=== PATIENT | female | born 1970 | race Asian ===

== ENCOUNTER 2017-08-21 13:21 | Emergency (ER) | payer MEDICAID ==
[~2017-08-21] VITALS: Ht 167.6 cm; Wt 66.7 kg
[2017-08-21 14:00] VITALS: BP 123/78
--- NOTE | 2017-08-21 14:50 | Emergency Room Report ---
History of Present Illness General Chief Complaint: Skin Rash/Abscess Source: Patient Present Illness HPI 47-year-old female presents to the emergency department complaining of pain, swelling and erythema to the area under her chin. Patient states that she has always had a palpable bump there that was very hard however while the last 4 days it has become very red and more tender than normal. Patient denies fevers or chills she denies lesions elsewhere on the body. Patient states that her pain is about approximately 2 out of 10 in severity. And she also states that she has a mild itching sensation in the area as well.Denies pain or difficulty with swallowing. She denies sore throat. Allergies: Coded Allergies: No Known Allergies (Unverified , 08/21/17) Patient History Past Medical History: see triage record Past Surgical History: none Last Menstrual Period: over 1 yr ago Reviewed Nursing Documentation: PMH: Agreed; PSxH: Agreed Nursing Documentation-PMH Past Medical History: No Stated History Review of Systems All Other Systems: negative except mentioned in HPI Physical Exam Vital Signs Date Time Temp Pulse Resp B/P (MAP) Pulse Ox O2 Delivery O2 Flow Rate FiO2 08/21/17 13:37 98.2 68 18 123/78 97 Room Air 98.2 Sp02 EP Interpretation: reviewed, normal General Appearance: no apparent distress, alert, GCS 15, non-toxic Head: normocephalic, atraumatic Eyes: bilateral eye normal inspection, bilateral eye PERRL ENT: hearing grossly normal, no angioedema, normal voice Neck: full range of motion, other - palpable area of fluctuance with some erythema 2 cm in diameter- well circumscribed. - Left anterior neck just below the chin. Respiratory: lungs clear, normal breath sounds, speaking full sentences Cardiovascular #1: regular rate, rhythm Musculoskeletal: back normal, gait/station normal, normal range of motion, non- tender Neurologic: alert, oriented x3, responsive, motor strength/tone normal, sensory intact, speech normal, grossly normal Psychiatric: judgement/insight normal Skin: normal color, no rash, warm/dry, well hydrated, other - Infected cyst- Left anterior neck just under the chin. palpable area of fluctuance with some erythema 2 cm in diameter- well circumscribed. Lymphatic: no adenopathy Procedures Incision and Drainage Incision and Drainage : Consent: Verbal Site: Left anterior neck/chin Blade Size: 11 I & D Procedure: betadine prep, sterile drapes applied, sterile dressing applied Wound Location: head Wound's Depth, Shape: superficial Wound Length (cm): 1 Wound Explored: contaminated - thick purulent material was expressed from the incision Anesthesia: 1% Lidocaine Volume Anesthetic (ccs): 1 Splint Applied?: No Sling Applied?: No Patient Tolerated: Well Complications: None Medical Decision Making PA Attestation Dr. soriano is my supervising Physician whom patient management has been discussed with. Diagnostic Impression: Primary Impression: Infected sebaceous cyst of skin ER Course 47-year-old female presents to the emergency department complaining of pain, swelling and erythema to the area under her chin. Patient states that she has always had a palpable bump there that was very hard however while the last 4 days it has become very red and more tender than normal. Patient denies fevers or chills she denies lesions elsewhere on the body. Patient states that her pain is about approximately 2 out of 10 in severity. And she also states that she has a mild itching sensation in the area as well.Denies pain or difficulty with swallowing. She denies sore throat. Ddx considered but are not limited to cellulitis, sebaceous cyst, fracture, abscess, hydra adenitis suppurativa. Vital signs: are WNL, pt. is afebrile H&PE are most consistent with sebaceous cyst- infected ORDERS: none required at this time, the diagnosis is clinical ED INTERVENTIONS: I & D - Discussed the patient that they should followup with trencher driver as this would require surgical removal to prevent recurrence. DISCHARGE: At this time pt. is stable for d/c to home. Will provide printed patient care instructions, and any necessary prescriptions. Care plan and follow up instructions have been discussed with the patient prior to discharge. Last Vital Signs Date Time Temp Pulse Resp B/P (MAP) Pulse Ox O2 Delivery O2 Flow Rate FiO2 08/21/17 14:00 98.2 72 18 123/78 97 Room Air 98.2 Disposition: HOME, SELF-CARE Condition: Stable Scripts Ibuprofen* (MOTRIN*) 400 Mg Tablet 400 MG ORAL THREE TIMES A DAY, #20 TAB 0 Refills Prov: Laurel Gonzales P.A. 08/21/17 Clindamycin Hcl (CLINDAMYCIN HCL) 300 Mg Capsule 300 MG ORAL FOUR TIMES A DAY for 7 Days, #28 CAP Prov: Laurel Gonzales 08/21/17 Patient Instructions: Sebaceous Cyst Removal, Abscess Additional Instructions: Take medications as directed. Follow up with a Primary Care Provider for DERMATOLOGY REFERRAL in 3-5 days , even if your symptoms have resolved. --Please review list of primary care clinics, if you do not already have a primary care provider Return sooner to ED if new symptoms occur, or current symptoms become worse. - Please note that this Emergency Department Report was dictated using [employer]profiling machine set up operator tool technology software, occasionally this can lead to erroneous entry secondary to interpretation by the dictation equipment. Laurel Gonzales August 21, 2017 14:50
[2017-08-21 14:52] VITALS: BP 123/78
[2017-08-21] MEDS ORDERED: IBUPROFEN400 MG ORAL (14:52)
[2017-08-21] MEDS ORDERED: CLINDAMYCIN HC300 MG ORAL (14:52)
== END 2017-08-21 15:20 | disposition home or self-care (01) ==
LOC: EMR 15:13
DX: L72.3 Sebaceous cyst (principal)
CPT/HCPCS: 10060; 99284